=== PATIENT | male | born 1965 | race Caucasian/White ===

== ENCOUNTER 2019-08-05 10:52 | Inpatient (IN) ==
[2019-08-05] MEDS ORDERED: ASPIRIN PO ONE (10:57)
[2019-08-05 11:20] LABS: BASO# 0.03 X1000 (0.0-0.2); BASO% 0.3 % (0.0-0.8); EOS# 0.08 X1000 (0.0-0.7); EOS% 0.7 % (0.0-10.0); HEMATOCRIT 45.1 % (42.0-52.0); HEMOGLOBIN 15.3 g/dL (14.0-18.0); IMM GRAN# 0.02 X1000 (0.0-0.04); IMM GRAN% 0.2 % (0.0-0.5); LYMPH# 2.51 X1000 (1.2-3.4); LYMPH% 21.2 % (20.5-51.1); MCH 31.1 PG (27-31); MCHC 33.9 g/dL (33-37); MCV 91.7 FL (81-99); MONO# 1.47 X1000 (0.11-0.59); MONO% 12.4 % (1.7-9.3); MPV 9.5 FL (7.4-10.4); NEUT# 7.73 X1000 (1.4-6.5); NEUT% 65.2 % (42.2-75.2); PLT 217 X1000 (130-400); RBC 4.92 XMIL (4.7-6.1); RDW 12.8 % (11.5-14.5); WBC 11.84 X1000 (4.8-10.8)
[2019-08-05 11:28] LABS: INR 0.88; PROTIME 12.4 Seconds (11.0-16.0); PTT 26.5 Seconds (22.3-41.8)
[2019-08-05 11:37] LABS: AGAP 15; ALBUMIN 4.4 g/dL (3.5-5.0); ALKALINE PHOSPHATASE 116 U/L (32-122); BUN 7 mg/dL (8-22); CALCIUM 9.5 mg/dL (8.8-10.2); CHLORIDE 99 mmol/L (98-107); CK PROFILE 51 U/L (24-204); COSMO 273; CREATININE 0.9 mg/dL (0.7-1.2); ESTIMATED GFR > 60; GLUCOSE 121 mg/dL (70-104); GOT 12 U/L (10-34); GPT 9 U/L (10-44); POTASSIUM 4.4 mmol/L (3.5-5.1); SODIUM 137 mmol/L (136-145); TCO2 23 mmol/L (25-35); TOTAL PROTEIN 7.8 g/dL (6.3-8.3)
--- NOTE | 2019-08-05 11:38 | EKG Report ---
Test Performed on : 08/05/2019 11:00:41 AM Test Reason : cp Blood Pressure : / mmHG Vent. Rate : 099 BPM Atrial Rate : 099 BPM P-R Int : 158 ms QRS Dur : 090 ms QT Int : 340 ms P-R-T Axes : 047 046 023 degrees QTc Int : 436 ms Normal sinus rhythm. Normal ECG No previous ECGs available Unconfirmed Result
--- NOTE | 2019-08-05 12:12 | Diag Imaging Result Doc PS360 ---
EXAM: CHEST-2 VIEWS INDICATION: cp TECHNIQUE: 2 views COMPARISON: None. FINDINGS: There is likely minimal atelectasis at the lung bases. The lungs are grossly clear, otherwise. There is no discrete pleural fluid collection or pneumothorax. The cardiomediastinal silhouette and central vasculature are grossly unremarkable. IMPRESSION: Likely minimal bibasilar atelectasis. No definite acute pathology by plain radiograph, otherwise. Electronically signed by Tanvri Noe 08/05/2019 12:09 PM
--- NOTE | 2019-08-05 13:02 | Diag Imaging Result Doc PS360 ---
EXAM: CT ANGIOGRM PULMONARY ARTERIES INDICATION: chest pain TECHNIQUE: This exam was performed using automated exposure control, adjustment of mA or kV according to patient size, and/or use of iterative reconstruction technique. Thin section axial images and 3-D MIPS were obtained. COMPARISON: None. FINDINGS: There are multiple filling defects seen in segmental and subsegmental branches of the pulmonary arteries bilaterally mainly leading to the lower lobes but also the right middle lobe and possibly the upper lobes. This is consistent with pulmonary emboli. The clot burden is moderate. The right ventricle is probably somewhat prominent suggesting increased pressures. There is no evidence of aortic dissection or aneurysm. There is no evidence of significant mediastinal or hilar lymphadenopathy. There are calcified right hilar lymph nodes indicating prior granulomatous disease. There are a few focal consolidations at the peripheries of the right and left lower lobes that are suspicious for pulmonary infarcts. The largest is at the periphery of the right lower lobe. There is trace pleural fluid on the right. There is no pneumothorax. Limited views of the upper abdomen are essentially unremarkable. IMPRESSION: Bilateral pulmonary emboli with a moderate clot burden and findings suggestive of pulmonary infarcts involving both the right and left lower lobes as described. Electronically signed by Tanvir Noe 08/05/2019 12:59 PM
--- NOTE | 2019-08-05 13:16 | PROVIDER DOCUMENTATION ---
This chart was entered by Narcisa Dang Scribe, acting as scribe for Conor Perla MD. HPI-Chest Pain - General Chief Complaint: Chest Pain Stated Complaint: CHEST PAIN Time Seen by Provider: 08/05/19 12:02 Source: patient Allergies/Adverse Reactions: Patient Allergies Allergy/AdvReac Type Severity Reaction Status Date / Time No Known Allergies Allergy Verified 08/05/19 11:12 Home Medications: Home Medication List Medication Instructions Recorded Confirmed Last Taken Type Clonazepam [Klonopin] 1 mg PO BID 08/05/19 08/05/19 Unknown History Omeprazole 40 mg PO DAILY 08/05/19 08/05/19 08/05/19 History - History of Present Illness-CP Nature of Presenting Problem: 54yom presents to ED cc right calf pain that radiates up to lower back, chest pain and SOB that is increased with breathing since last night. Pt denies any recent travel or family hx of clotting disorder. Pt is a smoker. Location: reports: central (right side) Chest Pain Radiation: reports: no radiation Quality of Pain: reports: sharp, tightness Severity in ED: moderate, severe Onset/Duration: last night Timing: still present Context/Activities at Onset: reports: sleep Modifying Factors: worse with: breathing, movement, palpation Associated Symptoms: reports: back pain, shortness of breath Similar Symptoms Previously?: No Recently Seen Here or By Another Healthcare Provider: No Review of Systems - Adult - REVIEW OF SYSTEMS - ADULT Constitutional: reports: see HPI, fatique. denies: chills, fever Eyes: reports: no symptoms reported Ears, Nose, Mouth & Throat: reports: no symptoms reported Cardiovascular: reports: see HPI, chest pain. denies: palpitations Respiratory: reports: see HPI, shortness of breath. denies: cough Gastrointestinal: reports: no symptoms reported Genitourinary: reports: no symptoms reported Musculoskeletal: reports: see HPI, back pain (low back), other (pain in right calf) Integumentary: reports: no symptoms reported Neurological: reports: no symptoms reported Psychiatric: reports: no symptoms reported Endocrine: reports: no symptoms reported Hematologic/Lymphatic: reports: no symptoms reported Allergic/Immunologic: reports: no symptoms reported All Other Systems: Reviewed and Negative Past History - Adult - PAST MEDICAL HISTORY-ADULT Review of Records: reports: Nursing Assessment Review, Medications Reviewed, Social history reviewed & non-contributory. Major Childhood Illnesses: reports: denies history Cardiovascular: reports: denies history Respiratory: reports: denies history Gastrointestinal: reports: denies history Obstetrical/Gynecological: reports: denies history Genitourinary: reports: denies history Musculoskeletal: reports: denies history Neurological: reports: denies history Endocrine/Immune: reports: denies history Other Conditions: reports: denies history - IMMUNIZATION STATUS Childhood Immunizations: See Nurse Assessment Flu Vaccine: See Nurse Assessment - FAMILY HISTORY Family History: reviewed, not pertinent - SOCIAL HISTORY Smoking: cigarettes, greater than 1 pack/day Provider spent 3-5 mins advising pt. on dangers of tobacco.: Discussed manners to quit use, and f/u contacts for add'l counseling. Physical Exam-General - PHYSICAL EXAM-ADULT Initial Vital Signs Reviewed: Yes - CONSTITUTIONAL General Appearance: alert, moderate distress. negative: anxious, combative - EYES Eyes: PERRL/EOMI, pink conjunctivae. negative: photophobia - HEAD, EARS, NOSE, MOUTH & THROAT HENMT: normocephalic/atraumatic, moist mucous membranes. negative: angioedema - RESPIRATORY Respiratory: pain on inspiration. negative: chest non-tender (right side), no pleuratic chest pain - CARDIOVASCULAR Cardiovascular: normal peripheral pulses, tachycardia. negative: regular rate, rhythm, bradycardia - GASTROINTESTINAL (ABDOMEN) Abdominal Exam: normal bowel sounds, non tender, soft. negative: rebound, tenderness - MUSCULOSKELETAL Extremity: normal range of motion, pelvis stable, calf tenderness (right) - SKIN Integumentary: normal color. negative: jaundice - PSYCHIATRIC Psych/Mental Status: normal mood/affect, oriented x 3. negative: anxious, disheveled Progress - PLAN OF CARE/RESULTS Progress/Plan/Lab Results: Vital Signs - 8 hr 08/05/19 11:09 Temperature 98.8 F Pulse Rate 96 H Respiratory Rate 19 Blood Pressure 152/110 O2 Sat by Pulse Oximetry 95 Laboratory Results - last 24 hr 08/05/19 08/05/19 08/05/19 11:03 11:03 11:03 WBC 11.84 H RBC 4.92 Hgb 15.3 Hct 45.1 MCV 91.7 MCH 31.1 H MCHC 33.9 RDW Std Deviation 12.8 Plt Count 217 MPV 9.5 Immature Gran % (Auto) 0.2 Neut % (Auto) 65.2 Lymph % (Auto) 21.2 Schleicher % (Auto) 12.4 H Eos % (Auto) 0.7 Baso % (Auto) 0.3 Immature Gran # (Auto) 0.02 Neut # (Auto) 7.73 H Lymph # (Auto) 2.51 Schleicher # (Auto) 1.47 H Eos # (Auto) 0.08 Baso # (Auto) 0.03 PT INR PTT (Actin FS) D-Dimer, Quantitative Sodium 137 Potassium 4.4 Chloride 99 Carbon Dioxide 23 L Anion Gap 15 BUN 7 L Creatinine 0.9 Estimated GFR/1.73 m2 > 60 BUN/Creatinine Ratio 8 Glucose 121 H Calculated Osmolality 273 Calcium 9.5 Total Bilirubin 1.30 H AST 12 ALT 9 L Alkaline Phosphatase 116 Creatine Kinase 51 Troponin T Qmc-P-Edkumdcoigq Pept 180 H Total Protein 7.8 Albumin 4.4 Globulin 3.0 Albumin/Globulin Ratio 1.0 08/05/19 08/05/19 08/05/19 11:03 11:03 11:03 WBC RBC Hgb Hct MCV MCH MCHC RDW Std Deviation Plt Count MPV Immature Gran % (Auto) Neut % (Auto) Lymph % (Auto) Schleicher % (Auto) Eos % (Auto) Baso % (Auto) Immature Gran # (Auto) Neut # (Auto) Lymph # (Auto) Schleicher # (Auto) Eos # (Auto) Baso # (Auto) PT 12.4 INR 0.88 PTT (Actin FS) 26.5 D-Dimer, Quantitative 3.76 H Sodium Potassium Chloride Carbon Dioxide Anion Gap BUN Creatinine Estimated GFR/1.73 m2 BUN/Creatinine Ratio Glucose Calculated Osmolality Calcium Total Bilirubin AST ALT Alkaline Phosphatase Creatine Kinase Troponin T < 0.010 Lyb-M-Dchshmaokhl Pept Total Protein Albumin Globulin Albumin/Globulin Ratio Orders Category Date Time Status Cardiac Monitoring DIRECTED Care 08/05/19 10:57 Active Oxygen Therapy- ED Nursing DIRECTED Care 08/05/19 10:57 Active Saline Loc NOW Care 08/05/19 10:57 Active CHEST-2 VIEWS [RAD] Stat Exams 08/05/19 10:[address] ANGIOGRM PULMONARY ARTERIES [CT] Stat Exams 08/05/19 12:01 Completed CBC WITH ELECTRONIC DIFF [HEME] Stat Lab 08/05/19 11:03 Completed CK PROFILE [SP CHEM] Stat Lab 08/05/19 11:03 Completed COMPREHENSIVE METABOLIC PANEL [CHEM] Stat Lab 08/05/19 11:03 Completed D-DIMER [COAG] Stat Lab 08/05/19 11:03 Completed PRO B-NATRIURETIC PEPTIDE Stat Lab 08/05/19 11:03 Completed PROTIME WITH INR [COAG] Stat Lab 08/05/19 11:03 Completed PTT [COAG] Stat Lab 08/05/19 11:03 Completed TROPONIN T Stat Lab 08/05/19 11:03 Completed Aspirin Med 08/05/19 10:57 Discontinued 325 mg PO NOW ONE CP/SOB/Palp >45 yrs of Age Stat Oth 08/05/19 10:57 Ordered EKG [EKG] Stat Ther 08/05/19 10:57 Draft Result Diagrams: 08/05/19 11:03 08/05/19 11:03 - EKG 1 Time of EKG reading by physician:: 11:00 EKG Read and Signed by:: Conor Perla EKG Interpretation (*Must complete 3 of following elements*): Normal Rate: 99 Rhythm: nsr QRS: normal GA Interval: normal - XRAY 1 XRAY: Bilateral XRAY Study: Chest Impression: See EMR Report (IMPRESSION: Likely minimal bibasilar atelectasis. No definite acute pathology by plain radiograph, otherwise. Electronically signed by Tanvir Noe 08/05/2019 12:09 PM) - CT/MRI 1 CT Study: Angiogram Impression: See EMR Report (IMPRESSION: Bilateral pulmonary emboli with a moderate clot burden and findings suggestive of pulmonary infarcts involving both the right and left lower lobes as described. Electronically signed by Tanvir Noe 08/05/2019 12:59 PM) - CONSULTS/PCP/HOSPITALIST Notification #1 *Consult/PCP/Hospitalist*: Dr. Payton [phone];[email or web address] Time Discussed: 13:10 Consult Disposition: Admit (accepted pt) Departure - Departure Date of Disposition Decision: 08/05/19 Time of Disposition Decision: 13:10 DIAGNOSIS: Pulmonary embolism Qualifiers: Pulmonary embolism type: unspecified Chronicity: unspecified Acute cor pulmonale presence: unspecified Qualified Code(s): I26.99 - Other pulmonary embolism without acute cor pulmonale Disposition: ADMITTED INPATIENT 09 Certified Medical Emergency: Emergent Condition: Stable Additional Instructions: ED Follow Up Instructions: You have been treated by a care provider in the Emergency Department. These instructions are being provided to you so you can have an understanding of how to care for yourself upon discharge. Upon discharge from the Emergency Department, you are responsible for making arrangements for follow-up care by a physician of your choice. Take all prescribed medications as directed. Return to the Emergency Department immediately for any new or worsening symptoms. You may call the Physician Referral phone number at [phone] to obtain a list of Physicians who are taking new patients. Referrals and Follow-Ups: Marah House CRNP [Primary Care Provider] - Discharge Education: Steps to Quit Smoking, [id number] - Critical Care Note This patient required my direct & personal management of CC.: No Attestation - Physician/ SHAHNAZ Attestation Patient care was provided by Advanced Practice Provider:: No The physician spent face to face time with patient:: Yes Advanced Practice Provider documentation review:: Supervising physician onsite and consulted in the evaluation and care of this patient. The physician did have a face to face encounter with the patient. This chart was documented by the indicated scribe, (Narcisa Dang, [place]) and accurately reflects the services I performed and decisions made by me, Conor Perla MD, as attested by the provider's signature.
[2019-08-05] MEDS ORDERED: LOVENOX SUBQ ONE (13:30)
--- NOTE | 2019-08-05 15:27 | Vascular Study Report ---
EXAM: Venous U/S Bilateral Legs INDICATION: pte TECHNIQUE: COMPARISON: None. FINDINGS: There are filling defects and there is poor compressibility and Doppler flow involving the right popliteal vein, the right peroneal vein, and the right posterior tibial vein indicating DVT. The remainder of the right deep venous system and the left deep venous system exhibit normal Doppler flow, compressibility, and augmentation. IMPRESSION: Deep venous thrombosis involving the popliteal vein, posterior tibial vein, and peroneal vein on the right. Electronically signed by Tanvir Noe 08/05/2019 3:25 PM
[2019-08-05] MEDS: MORPHINE IV PRN ×2 (16:02→21:20)
[2019-08-05] MEDS: ZOFRAN IV PRN (16:03)
[2019-08-05] MEDS: LOVENOX SUBQ SCH (16:03)
[2019-08-05] MEDS: NICODERM PATCH TD SCH (16:10)
--- NOTE | 2019-08-05 17:54 | HISTORY AND PHYSICAL ---
PRIMARY CARE PHYSICIAN: SAUL Pino. CHIEF COMPLAINT: Shortness of breath and pain. HISTORY OF PRESENT ILLNESS: Mr. Valle is a 54-year-old, male. He states that in the middle of the night last night, he started having chest pain and leg pain. Friend who is at the bedside, stated that he has not been feeling good for the past week. He was started on some Singulair. He thought it was his Singulair that was making him feel bad and he stopped taking his Singulair. He has been having shortness of breath since Wednesday of the past week. He has been having sweating, chills, and nausea. Last night when he started having the chest pain, severe shortness of breath, and leg pain, he decided to come to the ER this morning. Upon arrival to the ER, D-dimer was performed and was noted to be 3.76. Pulmonary arteriogram was performed. He was noted to have bilateral pulmonary emboli with infarcts involving both the right and left lower lobes. Venous ultrasound was performed. He was noted to have deep venous thrombosis involving the popliteal vein, posterior tibial vein, and peroneal vein on the right. The patient is having severe pain at this time to his chest. He is complaining of severe shortness of breath at this time. He is having trouble catching his breath while he is talking to me. He is right now 95% on room air. He does not have any other symptoms at this time. PAST MEDICAL HISTORY: Anxiety and GERD. 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 FAMILY HISTORY: Mom from lung cancer. SOCIAL HISTORY: Patient lives alone. He lives in [place], [place]. He smokes one pack of cigarettes per day. He drinks one drink of whiskey every day. He denies any illicit drug abuse. HOME MEDICATIONS: Klonopin 1 mg p.o. b.i.d., omeprazole 40 mg p.o. daily. ALLERGIES: No known drug allergies. LABORATORY AND DIAGNOSTICS: White blood cell count 11.84, red blood cell count 4.92, hemoglobin 15.3, hematocrit 45.1, platelet count 217,000. PT is 12.4, INR 0.88, PTT 26.5. D-dimer 3.76. Sodium 137, potassium 4.4, chloride 99, carbon dioxide 23, anion gap 15, BUN 7, creatinine 0.9, estimated GFR is greater than 60, glucose 121, calcium 9.5. Total bilirubin 1.30, AST is 12, ALT is 9, alkaline phosphatase 116. Creatine kinase 51, troponin less than 0.01. ProBNP is 180. Ultrasound venous Doppler shows DVT involving the popliteal vein, posterior tibial vein, and peroneal vein on the right. Pulmonary arteriogram shows bilateral pulmonary emboli with a moderate clot burden and findings suggestive of pulmonary infarcts involving both the right and left lower lobes. Chest x-ray shows bibasilar atelectasis. EKG shows normal sinus rhythm with a rate of 99 beats per minute. REVIEW OF SYSTEMS: The patient is negative for fever. He is positive for chills. He is negative for congestion, rhinorrhea, headaches, vision changes. Denies hoarseness or dizziness. Negative for neck pain, stiffness. Negative for excessive thirst, urination, intolerance to heat or cold. Negative for palpitations. Positive for chest pain. Negative for leg edema. Positive for cough. Negative for sputum. Positive for dyspnea, shortness of breath. Negative for hemoptysis. Negative for anorexia, nausea, vomiting. Positive for pain. Negative for melena, hematemesis, reflux, dysphagia, diarrhea, constipation, hemorrhoids. Negative for dysuria, hesitancy, frequency, urgency, hematuria, incontinence. Negative for joint pain, weakness, muscle aches. Negative for syncope, dizziness, tremor, vertigo, numbness, memory loss. PHYSICAL EXAMINATION: VITAL SIGNS: Temperature 98.1 degrees, pulse rate 88, respiratory rate 16, blood pressure is 127/63, O2 saturation 95% on room air. Weight 211 pounds, height 6 feet 4 inches. GENERAL: This is a 54-year-old, male. He is well nourished, well developed. He is in somewhat acute distress at present time. HEENT: Atraumatic, normocephalic. Pupils equal, round, reactive to light. Sclerae are anicteric. Mucous membranes are moist. NECK: Supple. No lymphadenopathy. Trachea is midline. No JVD. No thyromegaly. No bruits. CARDIOVASCULAR: Regular rate and rhythm. No gallops. No rubs. RESPIRATORY: Rhonchi noted to the upper lobes. A little diminished noted to the lower lobes. All lobes are very tight, especially in the upper lobes. Respirations seem labored. There is equal chest excursion. There is some accessory muscle usage. GASTROINTESTINAL: Abdomen is soft, nontender, nondistended. Bowel sounds are present x4. NEUROLOGIC: Cranial nerves 2-12 are intact. The patient is awake, alert, and oriented. MUSCULOSKELETAL: Full distal strength noted. No abnormalities. No deformities. EXTREMITIES: No clubbing. No cyanosis. No edema. DP and PT pulses are present and palpable. SKIN: Warm, dry, intact. No rashes. No bruises. No diaphoresis. ASSESSMENT AND PLAN: 1. Pulmonary embolism and deep venous thrombosis. We will admit this patient to the medical floor. We will place him on monitoring tech. We have started him on Lovenox 1 mg/kg subcutaneous b.i.d. We are going to keep him on bedrest at this time. We are going to provide him with O2 per protocol. We are going to provide him with morphine for pain. We are going to perform some labs in the morning and some labs today, restart his home medications, start him on a regular diet, do a chest x-ray in the morning. 2. Anxiety. I have restarted his Klonopin b.i.d. 3. Tobacco dependency. Start him on a nicotine patch and provide him with smoking cessation information. 4. Gastrointestinal prophylaxis. Start him on Prilosec daily. 5. Deep venous thrombosis prophylaxis. He is on Lovenox for his pulmonary emboli and deep vein thromboses. This should provide him with deep vein thrombosis prophylaxis. PLAN: Admit him to the medical floor. We have started him on Lovenox 1 mg/kg subcutaneous b.i.d. We have provided him with GI and DVT prophylaxis. We are providing him with morphine for pain. We will restart him on his home medications. We are checking some lab levels on him. We are going to repeat labs in the morning and a chest x-ray. All other further treatment pending hospital course and lab data. Dictated by SAUL Stiles for Chica Payton MD cc: MD Marah Verma
[2019-08-05] MEDS: KLONOPIN PO SCH (21:14)
[2019-08-06] MEDS: MORPHINE IV PRN ×8 (00:50→23:54)
[2019-08-06] MEDS: PRILOSEC PO SCH ×2 (05:29→06:33)
[2019-08-06] MEDS: LOVENOX SUBQ SCH ×2 (05:29→15:39)
[2019-08-06 06:36] LABS: AGAP 13; BUN 8 mg/dL (8-22); CALCIUM 9.5 mg/dL (8.8-10.2); CHLORIDE 99 mmol/L (98-107); COSMO 272; CREATININE 0.9 mg/dL (0.7-1.2); ESTIMATED GFR > 60; GLUCOSE 101 mg/dL (70-104); POTASSIUM 4.2 mmol/L (3.5-5.1); SODIUM 137 mmol/L (136-145); TCO2 26 mmol/L (25-35)
[2019-08-06 06:57] LABS: BASO# 0.04 X1000 (0.0-0.2); BASO% 0.4 % (0.0-0.8); EOS# 0.05 X1000 (0.0-0.7); EOS% 0.5 % (0.0-10.0); HEMOGLOBIN 14.2 g/dL (14.0-18.0); IMM GRAN# 0.02 X1000 (0.0-0.04); IMM GRAN% 0.2 % (0.0-0.5); LYMPH# 1.89 X1000 (1.2-3.4); LYMPH% 19.1 % (20.5-51.1); MCH 30.5 PG (27-31); MCV 92.5 FL (81-99); MONO# 1.17 X1000 (0.11-0.59); MONO% 11.9 % (1.7-9.3); MPV 10.1 FL (7.4-10.4); NEUT% 67.9 % (42.2-75.2); PLT 223 X1000 (130-400); RBC 4.65 XMIL (4.7-6.1); RDW 12.8 % (11.5-14.5); WBC 9.87 X1000 (4.8-10.8)
--- NOTE | 2019-08-06 07:41 | Diag Imaging Result Doc PS360 ---
EXAM: CHEST-PORTABLE INDICATION: dyspnea TECHNIQUE: One view COMPARISON: 08/05/2019 FINDINGS: A mild opacity at the right costophrenic angle that appeared to represent atelectasis on the previous study is stable. Based on CT, this probably represents a small pulmonary infarct. No new consolidations are identified. Cardiac silhouette is stable. IMPRESSION: Stable chest. Electronically signed by Tanvir Noe 08/06/2019 7:38 AM
[2019-08-06] MEDS: ZOFRAN IV PRN ×3 (09:39→21:44)
[2019-08-06] MEDS: NICODERM PATCH TD SCH (09:39)
[2019-08-06] MEDS: KLONOPIN PO SCH ×3 (09:56→23:54)
[2019-08-06] MEDS: NS 1,000 ML IV SCH ×2 (10:04→19:43)
--- NOTE | 2019-08-06 13:57 | PROGRESS NOTE ---
DATE: 08/06/2019 SUBJECTIVE: Patient denies having any acute complaints this morning except for having some pleuritic chest discomfort at times, although that has improved as compared to yesterday. OBJECTIVE: Vital Signs: Temperature 99.7 degrees, pulse 92 per minute, respiratory rate 18 per minute, blood pressure 123/70, pulse oximetry 98% on 2 L of oxygen via nasal cannula. General: Patient is alert and oriented x3. Does not appear to be in any acute distress. Cardiovascular System: First and second heart sounds are audible without any murmurs or gallops. Respiratory System: Bilateral lung air entry is moderately decreased but there are no rales or rhonchi present on auscultation. Gastrointestinal System: Abdomen is benign. Diagnostic Data: CBC is nondiagnostic and basic metabolic panel is also within normal limits. LDH was slightly elevated at 248. ProBNP was done yesterday. That was slightly elevated at 180. Cardiac enzymes were negative. IMPRESSION: Acute bilateral pulmonary embolism with right lower extremity deep vein thrombosis. PLAN: We will continue with the enoxaparin subcutaneously 1 mg/kg every 12 hours. We will also continue him on omeprazole 40 mg daily, along with IV fluids. He does have history of anxiety disorder for which he has been taking clonazepam 1 mg twice daily, which will be continued as well. He can probably be able to be discharged home in the next 1 to 2 days. I recommended him to follow up with hematology/oncology once ready to be discharged. cc: Chica Payton MD
--- NOTE | 2019-08-06 18:31 | Diag Imaging Result Doc PS360 ---
EXAM: CHEST-PORTABLE INDICATION: Chest Pain TECHNIQUE: One view COMPARISON: 08/06/2019 FINDINGS: The vague opacity at the right costophrenic angle seen on previous studies that probably represents a pulmonary infarct appears to be improving. No new consolidation is identified. Cardiac silhouette is stable. IMPRESSION: Interval slight improvement. Electronically signed by Tanvir oNe 08/06/2019 6:29 PM
[2019-08-06 20:16] LABS: URINE SOURCE CLEAN CATCH
[2019-08-06 20:21] LABS: BILIRUBIN URINE 1+ (NEGATIVE); BLOOD URINE 1+ (NEGATIVE); CLARITY CLEAR (CLEAR); COLOR YELLOW; GLUCOSE URINE NEGATIVE (NEGATIVE); KETONE URINE 3+(Large) mg/dL (NEGATIVE); LEUKOCYTES URINE TRACE (NEGATIVE); NITRITE URINE NEGATIVE (NEGATIVE); PH URINE 6.5; PROTEIN URINE TRACE mg/dL (NEGATIVE); SP GRAVITY URINE 1.015; UROBILINOGEN URINE 12 mg/dL
[2019-08-06 20:32] LABS: URINE BACTERIA 1+ /HFP; URINE EPITHELIAL CELLS <10 /HPF (<10)
[2019-08-06 20:33] LABS: URINE CAST NONE SEEN /LPF; URINE CRYSTAL NONE SEEN /HPF; URINE RBC <10 /HPF (<10); URINE WBC <10 /HPF (<10); URINE YEAST NONE SEEN /HPF
[2019-08-07] MEDS: MORPHINE IV PRN ×5 (01:47→10:01)
[2019-08-07] MEDS: ZOFRAN IV PRN ×2 (01:48→05:45)
[2019-08-07] MEDS: LOVENOX SUBQ SCH ×2 (03:46→15:21)
[2019-08-07] MEDS: NS 1,000 ML IV SCH ×2 (04:16→12:48)
[2019-08-07 06:35] LABS: AGAP 9; BUN 8 mg/dL (8-22); CHLORIDE 102 mmol/L (98-107); COSMO 268; CREATININE 0.8 mg/dL (0.7-1.2); ESTIMATED GFR > 60; GLUCOSE 95 mg/dL (70-104); POTASSIUM 4.4 mmol/L (3.5-5.1); SODIUM 135 mmol/L (136-145); TCO2 24 mmol/L (25-35)
[2019-08-07 06:47] LABS: BASO# 0.04 X1000 (0.0-0.2); BASO% 0.5 % (0.0-0.8); EOS# 0.07 X1000 (0.0-0.7); EOS% 0.8 % (0.0-10.0); HEMATOCRIT 39.7 % (42.0-52.0); HEMOGLOBIN 13.1 g/dL (14.0-18.0); IMM GRAN# 0.02 X1000 (0.0-0.04); IMM GRAN% 0.2 % (0.0-0.5); LYMPH# 1.57 X1000 (1.2-3.4); LYMPH% 18.2 % (20.5-51.1); MCH 30.5 PG (27-31); MCV 92.3 FL (81-99); MONO# 0.86 X1000 (0.11-0.59); MPV 9.8 FL (7.4-10.4); NEUT# 6.06 X1000 (1.4-6.5); NEUT% 70.3 % (42.2-75.2); PLT 270 X1000 (130-400); RDW 12.2 % (11.5-14.5); WBC 8.62 X1000 (4.8-10.8)
[2019-08-07] MEDS: PRILOSEC PO SCH ×2 (08:19→21:30)
[2019-08-07] MEDS: KLONOPIN PO SCH ×2 (08:19→21:31)
[2019-08-07] MEDS: NICODERM PATCH TD SCH (08:20)
--- NOTE | 2019-08-07 10:04 | Diag Imaging Result Doc PS360 ---
EXAM: US RENAL 2 (RETROPER) COMPLETE HISTORY: Hematuria TECHNIQUE: Real-time transabdominal evaluation of the kidneys and bladder. Standard protocol. COMPARISON: None. FINDINGS: Right kidney: 11.0 centimeters in length. Renal echotexture is normal. There is no hydronephrosis, nephrolithiasis, or focal renal mass. Left kidney: 11.5 centimeters in length. Renal echotexture is normal. There is no hydronephrosis, nephrolithiasis, or focal renal mass. Bladder: No focal abnormality is appreciated. IMPRESSION: Normal renal ultrasound. Electronically signed by Felisa Rey 08/07/2019 10:02 AM
[2019-08-07] MEDS: DILAUDID IV PRN ×4 (12:16→21:29)
--- NOTE | 2019-08-07 14:01 | Diag Imaging Result Doc PS360 ---
EXAM: CHEST-1 VIEW HISTORY: pulmonary embolism TECHNIQUE: Single view COMPARISON: 08/06/2019 FINDINGS: The lungs are well expanded. The heart is not enlarged. The vessels are not distended. There are minimal increased markings in the right lung base. No effusion identified. IMPRESSION: Mild improvement Electronically signed by Petey Blakely 08/07/2019 1:58 PM
[2019-08-07] MEDS ORDERED: TORADOL IV ONE (15:19)
[2019-08-07] MEDS ORDERED: SODIUM CHLORIDE 0.9% INJ SCH (15:30)
[2019-08-07] MEDS ORDERED: PROTONIX IV SCH (15:30)
[2019-08-07] MEDS ORDERED: TYLENOL PO PRN (15:35)
--- NOTE | 2019-08-07 15:53 | PROGRESS NOTE ---
DATE: 08/07/2019 SUBJECTIVE: Patient does not feel good. He does not feel like he has gotten any better since admission. He hurts all over. He is just not happy but feels like he should have progressed more than he has at this point. OBJECTIVE: Blood pressure 136/86, heart rate 72, respiratory 14, temperature 98.1 degrees, 96% on 2 L.Cardiovascular: Regular rate and rhythm. Pulmonary: Bilateral breath sounds, clear to auscultation. GI: Soft, nontender, nondistended. Bowel sounds are positive. LABORATORY DATA: White count 8, hemoglobin and hematocrit 13, 39, platelets 270,000. Basic was normal. PROBLEM LIST: 1. Bilateral pulmonary embolism with a right lower extremity deep vein thrombosis 2. Pulmonary embolism. Will continue Lovenox. I think we are probably getting close to transitioning him to p.o. Eliquis. I may do that tomorrow. Clinically I feel like he should be better by now but I am not sure if it is just poor motivation or just feels all over. He is not really ill as far as his vital signs, blood pressure, heart rate is stable. He does have minimal O2 requirement but it has not clinically worsened. He has pulmonary infarcts but his x-rays look improved so I am not quite sure why he has not rallied but we do need to work on getting him out of bed. He has been here for 3 days at least so work on that maybe in physical therapy. I am moving him so he can get a Pulmonary consultation because he did not specifically requested for that but he did not feel like he was getting any better. We can also have Heme-Onc evaluate him there because we really unclear diagnosis why he has an acute PE, DVT. Reportedly colonoscopy in the last 6 months was normal, stomach did not show any issues except for possibly some gastritis. We will finish his hypercoagulable workup because he does not have all the hypercoagulable labs ordered including lupus and antiphospholipid which is unlikely to be positive but as far as I can tell his homocystine level has not been drawn either but we will continue to follow. cc: Travis Workman MD
--- NOTE | 2019-08-07 15:53 | EKG Report ---
Test Performed on : 08/07/2019 3:28:30 PM Test Reason : cp Blood Pressure : / mmHG Vent. Rate : 084 BPM Atrial Rate : 084 BPM P-R Int : 148 ms QRS Dur : 090 ms QT Int : 366 ms P-R-T Axes : 065 055 046 degrees QTc Int : 432 ms Normal sinus rhythm. Cannot rule out Anterior infarct , age undetermined Abnormal ECG When compared with ECG of 05-AUG-2019 11:00, (Unconfirmed) No significant change was found Confirmed by Conor Perla MD ([id number]) on 08/07/2019 6:21:58 PM
[2019-08-07] MEDS: CLINIMIX E 4.25%-5% SOLUTION 1,000 ML IV SCH (16:51)
--- NOTE | 2019-08-07 19:13 | ECHO REPORT ---
ORDER DATE: 08/07/2019 INTERPRETING PHYSICIAN: Dr. Alejo Finley. REQUESTING PHYSICIAN: Travis Workman MD. CLINICAL INDICATIONS: A 54-year-old male with pulmonary embolism. Evaluate LV function. M-MODE MEASUREMENTS: Left ventricle end diastole: 5.5 cm. Left ventricle end systole: 2.9 cm. Posterior wall: 1.1 cm. Interventricular septum: 1.1 cm. Left atrium: 4.5 cm. Aortic root: 3.9 cm. SUMMARY OF 2-DIMENSIONAL IMAGIN. The study is technically difficult. 2. The left ventricle shows normal in size and function. Ejection fraction visually estimated at 65%. No wall motion abnormality is noted. 3. The right ventricle shows some thickening of the wall with normal function. 4. There is no dilatation or obvious dysfunction. 5. The atria appear to be normal. 6. The mitral valve is normal with no significant regurgitation. 7. Pulse wave Doppler of mitral inflow shows normal E/A ratio. 8. Tissue Doppler of septal and lateral mitral annulus averages 9 cm per second. 9. There is no definite evidence of left ventricular diastolic dysfunction. 10.The aortic valve is normal. Color flow mapping unremarkable. 11.The pulmonic valve is normal. Color flow mapping unremarkable. 12.The tricuspid valve is well visualized. However, there is no evidence of any significant regurgitation. Pulmonary systolic pressure cannot be calculated here. 13.There is no pericardial effusion, mass or thrombus. SUMMARY: This echocardiographic study is probably within normal range. Clinical correlation is recommended. cc: MD Travis Renee MD
--- NOTE | 2019-08-07 20:45 | PULMONOLOGY CONSULTATION ---
DATE: 08/07/2019 REQUESTING CLINICIAN: Dr. Lucas Workman. REASON FOR CONSULTATION: Persistent hypoxemia. HISTORY OF PRESENT ILLNESS: Mr. Valle is a 54-year-old male with a greater than 30 pack-year history for tobacco, ongoing tobacco use, who leads a relatively active lifestyle. The patient reports approximately 5 days prior to presenting to [facility] on the 12th of this month, he developed some pain in his right lower extremity. He has been laying new floors in a house that he purchased and attributed it to muscle fatigue. On the day of admission, he developed acute right-sided chest pain and he presented to the emergency room. D-dimer was elevated and he underwent a CT pulmonary angiogram which revealed bilateral pulmonary emboli with bibasilar pulmonary infarctions. Venous Dopplers of the lower extremities were performed and he has deep vein thrombosis involving the popliteal vein, posterior tibial vein, and peroneal vein on the right. He reports that he is having some migratory chest pain. PAST MEDICAL HISTORY: 1. History of plantar fasciitis involving the left leg. 2. History of squamous cell carcinoma, requiring significant facial surgery. 3. History of basal cell carcinoma. 4. Anxiety disorder, on Klonopin for the last 2 to 3 years. 5. Gastroesophageal reflux disease. SOCIAL HISTORY: Ongoing tobacco use as per above. 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 He drinks 1 drink of whiskey each day. FAMILY HISTORY: Positive for lung cancer in his mother. REVIEW OF SYSTEMS: As noted in the HPI. PHYSICAL EXAMINATION: General: Reveals a well developed, well nourished male, resting comfortably and in no distress. Vital Signs: BP 150/88, heart rate 86, respiratory rate 16, oxygen saturation 99% on 2 L per nasal cannula. HEENT: Pupils are equal and reactive. Oropharynx appears clear. Neck: Supple. Chest: Faint crackles bilaterally. Cardiac: S1, S2. Abdomen: Soft. Extremities: Without significant abnormality. The leg circumferences were not measured, but visually examined. LABORATORIES: CT scan as per HPI. Echocardiogram performed this afternoon reveals normal LV function. There is some thickening of the wall of the right ventricle, but no dilation described. Pulmonary artery pressure could not be calculated due to lack of regurgitation. It was read as essentially within normal range. IMPRESSION: A 54-year-old with extensive tobacco history, pulmonary embolus, pulmonary infarction, deep vein thrombosis, pleurisy, acute hypoxemic respiratory failure. The patient is completing 48 hours of anticoagulation. He is not hemodynamically unstable. Echocardiogram appears to be near normal. RECOMMENDATIONS: 1. Continue anticoagulation. He can be transitioned to an oral anticoagulant from my perspective. 2. Initiate incentive spirometry. 3. Wean oxygen as tolerated. 4. I agree with plans to have patient evaluated by Oncology to evaluate possible etiology for an unprovoked clot. 5. Encourage smoking cessation. 6. Recommend pulmonary function studies in 6 to 8 weeks after he has been adequately treated for his pulmonary embolus. cc: Sincere Arias MD
[2019-08-08] MEDS: DILAUDID IV PRN ×5 (00:30→20:58)
[2019-08-08] MEDS: ZOFRAN IV PRN ×4 (00:30→20:59)
[2019-08-08] MEDS: TORADOL IV PRN ×2 (03:33→12:32)
[2019-08-08] MEDS: CLINIMIX E 4.25%-5% SOLUTION 1,000 ML IV SCH ×2 (03:33→12:32)
[2019-08-08] MEDS: LOVENOX SUBQ SCH ×2 (03:33→16:07)
[2019-08-08 05:29] LABS: BASO# 0.02 X1000 (0.0-0.2); BASO% 0.3 % (0.0-0.8); EOS# 0.25 X1000 (0.0-0.7); EOS% 3.9 % (0.0-10.0); HEMATOCRIT 38.4 % (42.0-52.0); HEMOGLOBIN 13.1 g/dL (14.0-18.0); LYMPH# 1.47 X1000 (1.2-3.4); LYMPH% 22.9 % (20.5-51.1); MCH 31.4 PG (27-31); MCHC 34.1 g/dL (33-37); MCV 92.1 FL (81-99); MONO# 0.64 X1000 (0.11-0.59); MPV 10.1 FL (7.4-10.4); NEUT# 4.03 X1000 (1.4-6.5); NEUT% 62.9 % (42.2-75.2); PLT 259 X1000 (130-400); RBC 4.17 XMIL (4.7-6.1); WBC 6.41 X1000 (4.8-10.8)
[2019-08-08 06:06] LABS: AGAP 11; BUN 12 mg/dL (8-22); CALCIUM 8.4 mg/dL (8.8-10.2); CHLORIDE 102 mmol/L (98-107); COSMO 275; CREATININE 0.7 mg/dL (0.7-1.2); ESTIMATED GFR > 60; GLUCOSE 127 mg/dL (70-104); POTASSIUM 3.7 mmol/L (3.5-5.1); SODIUM 137 mmol/L (136-145); TCO2 24 mmol/L (25-35)
[2019-08-08] MEDS: PRILOSEC PO SCH ×2 (08:28→20:59)
[2019-08-08] MEDS: NICODERM PATCH TD SCH (08:29)
[2019-08-08] MEDS: KLONOPIN PO SCH ×2 (08:29→20:59)
[2019-08-08] MEDS ORDERED: KLONOPIN PO SCH (09:00)
--- NOTE | 2019-08-08 16:05 | ECHO REPORT ---
ORDER DATE: 08/07/2019 ADDENDUM: At the end of the procedure, the patient was injected with agitated saline because of a suspicion of possible patent foramen ovale. Agitated saline was injected twice with optimal opacification of the right-sided chambers. The study showed trivial crossing of bubbles from [id number]. It was a very slightly positive study for patent foramen ovale. SUMMARY: This study showed that there is suspicion of a patent foramen ovale with slight crossing of bubbles from [id number]. Please correlate clinically and make this an addendum to the dictation that was done on 08/07/2019. I missed this portion of the study on the original report. cc: MD Travis Renee MD MTDD
--- NOTE | 2019-08-08 16:15 | PROGRESS NOTE ---
DATE: 08/08/2019 SUBJECTIVE: The patient is still not feeling very good. He is just weak. He has pain when he walks. He has pain when he is up and about. Really not entirely sure why he is so uncomfortable, but he does have several things. His D-dimer was elevated. So far his protein C, S, and antithrombin activity are negative, as was his homocystine level. We are still waiting on his other testing. OBJECTIVE: Vital signs: Blood pressure is 116/82, heart rate of 80, respiratory rate 18, temperature 98.4 degrees. Cardiovascular: Regular rate and rhythm. Pulmonary: Bilateral breath sounds. Clear to auscultation. GI: Soft, nontender, nondistended. Bowel sounds are positive. LABORATORY DATA: White count is 6, hemoglobin and hematocrit 13 and 38, platelets 259,000. Basic was normal. PROBLEM LIST: 1. Pulmonary embolism and deep vein thrombosis. He is on anticoagulation with Lovenox. At some point I think we are going to transition him, hopefully soon, to Xarelto or Eliquis and follow. He is getting a DVT, PE workup, hypercoagulability, thrombophilia workup. So far everything is negative. PSA was analyzed. I think that is appropriate for his age range. He is a little on the young side but really do not have any other clear issues. 2. Disposition. We will continue to follow. I think he really needs to be getting up and about. I am going to order PT on him. I think his ability to tolerate the comfort is he has a low threshold I think for pain, although I do not think he has a lot of experience with this. He is not rallying like I would hope he would do. He is eating a little bit better, so hopefully he will come around. We need to start getting him up and about. We will get a PT consult and follow. Disposition is pending his clinical status. cc: Travis Workman MD
--- NOTE | 2019-08-08 16:21 | HEMO/ONC CONSULTATION ---
DATE: 08/08/2019 CONSULTATION REQUESTED BY: Hospitalist service. REASON FOR CONSULTATION: For bilateral PTEs and right lower extremity DVT, unprovoked. HISTORY OF PRESENT ILLNESS: Mr. Valle is a 54-year-old male who initially presented to the emergency department complaining of increasing chest pain and leg pain. The patient reported in general not feeling well prior to his presentation. Workup revealed for him to have an elevated D- dimer. He subsequently underwent pulmonary arteriogram which showed him to have bilateral pulmonary emboli with infarcts involving both the right and left lower lobes. Lower extremity Doppler revealed him to have a DVT on the right involving the popliteal vein, posterior tibial vein and peroneal vein. He is now being closely monitored. He is on Lovenox 1 mg/kg q.12 hours. Hypercoagulable workup has been initiated but thus far has been negative. The patient denies any family history of blood clot. He is very active. He works full-time. 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 He denies any recent long-distance travel as well. He is up-to-date on colonoscopy and endoscopy within the last 6 months both of which were negative for any sort of malignancies or any other issues. The patient is not sure if he has had his prostate checked ever. He is currently tolerating the Lovenox well without any issues. PAST MEDICAL HISTORY: 1. Anxiety. 2. GERD. PAST SURGICAL HISTORY: 1. Plantar fasciitis repair. 2. Basal cell cancer removal on his back. 3. Squamous cell cancer removal from his lip. SOCIAL HISTORY: Patient currently lives alone in [place], [place]. He smokes about 1 pack of cigarettes per day and also drinks 1 drink of whiskey every day. Denies any illicit drug use. FAMILY HISTORY: He denies any clotting history in his family. His mother did from lung cancer. REVIEW OF SYSTEMS: Twelve point review of systems has been completed negative except for expressed in HPI. PHYSICAL EXAMINATION: Vital Signs: Temperature 97.7 degrees, heart rate 71, respirations 20, blood pressure 129/87, O2 saturation 97% on 2 L nasal cannula. General: This is a well- nourished, well-developed male who is sitting in his hospital bed. There is no one at bedside. He has no acute distress. HEENT: Head normocephalic, atraumatic. Pupils equal, round, reactive. Oral mucosa appears to be normal. Gross auditory acuity is intact. Cardiovascular: S1, S2 heard. No murmurs, gallops, rubs appreciated. Respiratory: Chest clear. Normal respiratory effort. Gastrointestinal: Abdomen soft. Positive bowel sounds. Musculoskeletal: No bony abnormalities. Extremities: Patient has some trace right lower extremity edema. Left lower extremity is unremarkable. No erythema or warmth noted bilateral lower extremities. Neurologic: Patient is alert and oriented. No focal deficits noted at this time. LABS AND STUDIES: CT angio and lower extremity Doppler is as per the [facility]. White blood cells today are 6.41, hemoglobin 13.1, platelets 259,000. ASSESSMENT/PLAN: 1. Bilateral pulmonary thromboembolisms with right extensive lower extremity deep vein thrombosis, unprovoked. Hypercoagulable workup has been initiated and thus far has come back as negative. Will make sure to review all of the hypercoagulable workup when it becomes available. The patient is currently on Lovenox 1 mg/kg which is the therapeutic dosing. Plan to transition the patient to oral agent. We recommend Xarelto due to its eventual once a day dosing. Eliquis could work as well. The patient will likely need long-term anticoagulation so that was discussed with him at this time. Will have to have him follow up with us once he is out to review all the hypercoagulable workup and discuss the length of his anticoagulation. At the very minimum would be a 6 month course but again, it will likely be for longer. The patient has recently had a colonoscopy. We recommend at this time doing PSA just so he is up- to-date on his age-appropriate cancer screening. 2. Pleurisy and acute hypoxemic respiratory failure. Dr. Arias has been consulted and has evaluated the patient. Management per Dr. Arias. 3. Anxiety. He will continue to use Klonopin twice per day. 4. Pain. Seems to be currently well managed. He is receiving Dilaudid and Toradol. Continue both per the primary team's recommendations. We want to thank you for consulting us on Mr. Valle. We will continue to follow along and adjust our treatment plan per the patient's hospital course. Dictated by JET Mai for Gila Hernandez MD cc: Gila Hernandez MD I have seen and examined the patient and the above note reflects my H&P, assessment and plan. Gila Hernandez MD [facility]
--- NOTE | 2019-08-08 20:56 | PULMONOLOGY PROGRESS NOTE ---
DATE: 08/08/2019 SUBJECTIVE: The patient is awake, alert and conversant. He is without specific complaints today except for mild pleurisy. OBJECTIVE: The patient has been afebrile over the last 24 hours. Blood pressure 130/83, heart rate 80, respiratory rate 20, oxygen saturation 97%. HEENT: Pupils are equal and reactive. Oropharynx appears clear. Neck is supple. Chest reveals decreased breath sounds, right base. Cardiac exam: S1, S2. Abdomen is soft. Extremities reveal slight asymmetry, right lower extremity, compared to left. IMPRESSION: A 54-year-old with: 1. Unprovoked pulmonary embolus. 2. Pulmonary infarction. 3. Pleurisy associated with pulmonary infarction. 4. Deep vein thrombosis. 5. Acute hypoxemic respiratory failure. PLAN: 1. Continue anticoagulation. 2. Continue incentive spirometry. 3. Wean oxygen as tolerated. 4. Agree with oncology evaluation for hypercoagulable workup. 5. Encourage smoking cessation. 6. Followup chest x-ray tomorrow. cc: Sincere Arias MD
--- NOTE | 2019-08-08 21:05 | Diag Imaging Result Doc PS360 ---
EXAM: CHEST-PORTABLE HISTORY: abnormal chest exam TECHNIQUE: Chest single view COMPARISON: 08/07/2019 FINDINGS: The lungs are well expanded. The heart is not enlarged. The vessels are not distended. Right lung markings are slightly less pronounced. No effusion identified. IMPRESSION: Mild improvement Electronically signed by Petey Blakely 08/08/2019 9:02 PM
[2019-08-09] MEDS: CLINIMIX E 4.25%-5% SOLUTION 1,000 ML IV SCH ×4 (01:14→20:04)
[2019-08-09] MEDS: DILAUDID IV PRN ×5 (01:25→22:15)
[2019-08-09] MEDS: LOVENOX SUBQ SCH ×2 (03:54→14:51)
[2019-08-09] MEDS: TORADOL IV PRN (03:57)
[2019-08-09 05:16] LABS: BASO# 0.02 X1000 (0.0-0.2); BASO% 0.3 % (0.0-0.8); EOS# 0.23 X1000 (0.0-0.7); EOS% 3.8 % (0.0-10.0); HEMATOCRIT 36.9 % (42.0-52.0); HEMOGLOBIN 12.4 g/dL (14.0-18.0); LYMPH% 29.6 % (20.5-51.1); MCH 30.9 PG (27-31); MCHC 33.6 g/dL (33-37); MONO# 0.58 X1000 (0.11-0.59); MONO% 9.5 % (1.7-9.3); MPV 9.9 FL (7.4-10.4); NEUT# 3.46 X1000 (1.4-6.5); NEUT% 56.8 % (42.2-75.2); PLT 283 X1000 (130-400); RBC 4.01 XMIL (4.7-6.1); RDW 11.9 % (11.5-14.5); WBC 6.09 X1000 (4.8-10.8)
[2019-08-09 05:45] LABS: AGAP 9; BUN 14 mg/dL (8-22); CALCIUM 8.6 mg/dL (8.8-10.2); CHLORIDE 101 mmol/L (98-107); COSMO 272; CREATININE 0.7 mg/dL (0.7-1.2); ESTIMATED GFR > 60; GLUCOSE 116 mg/dL (70-104); POTASSIUM 3.8 mmol/L (3.5-5.1); SODIUM 135 mmol/L (136-145); TCO2 25 mmol/L (25-35)
[2019-08-09] MEDS: KLONOPIN PO SCH ×2 (08:18→21:13)
[2019-08-09] MEDS: NICODERM PATCH TD SCH (08:18)
[2019-08-09] MEDS: PRILOSEC PO SCH ×2 (08:18→21:13)
[2019-08-09] MEDS: ZOFRAN IV PRN ×3 (08:19→18:38)
--- NOTE | 2019-08-09 15:16 | PROGRESS NOTE ---
DATE: 08/09/2019 OBJECTIVE: Vital Signs: Blood pressure is 112/78, heart rate of 78, respiratory rate of 12, temperature 98. No fevers. Cardiovascular: Regular rate and rhythm. Pulmonary: Bilateral breath sounds. Clear to auscultation. GI: Soft, nontender, nondistended. Bowel sounds are positive. There is no wheezing. There are no rales. I think I am going to start him on Eliquis in the morning and make sure that they qualify for pricing. ASSESSMENT: 1. Pulmonary infarct. He seems to still struggling a bit, but overall he is doing okay. We are going to switch him to Eliquis tomorrow with a b.i.d. loading dose. 2. Respiratory failure. I think we are probably going to have to look at home oxygen evaluation tomorrow, but today is the first day I feel like he actually looks a little bit better to me. He just seems like he is doing a little bit better. Switch him to some pain medication and see how he does with that. DISPOSITION: Pending clinical status and we will continue to follow. cc: Travis Workman MD
[2019-08-09] MEDS: NORCO-10 PO PRN (16:31)
--- NOTE | 2019-08-10 01:15 | PULMONOLOGY PROGRESS NOTE ---
DATE: 08/09/2019 SUBJECTIVE: The patient is awake, alert and conversant. He has some pleuritic chest pain but it is improving. OBJECTIVE: The patient has been afebrile for the last 24 hours. Blood pressure 126/86, heart rate 81, respiratory rate 16, oxygen saturation 96% on 2 L per nasal cannula.HEENT: Pupils are equal and reactive. Oropharynx appears clear. Chest reveals decreased breath sounds, right base. Cardiac exam: S1, S2. Abdomen is soft. Extremities are without edema. The right leg is slightly larger than the left. IMPRESSION: A 54-year-old with: 1. Unprovoked pulmonary embolus. 2. Pulmonary infarction. 3. Pleurisy associated with infarction. 4. Deep vein thrombosis. 5. Acute hypoxemic respiratory failure. DISCUSSION: A 54-year-old with problems outlined above. He has been anticoagulated for 96 hours. He continues to improve. RECOMMENDATIONS: 1. Agree with initiation of oral anticoagulation. 2. Continue incentive spirometry. 3. Consider ambulation tomorrow. 4. Consider discharge home if he continues to improve. cc: Sincere Arias MD
[2019-08-10] MEDS: CLINIMIX E 4.25%-5% SOLUTION 1,000 ML IV SCH (04:46)
[2019-08-10] MEDS: DILAUDID IV PRN ×5 (04:51→23:55)
[2019-08-10 05:22] LABS: BASO# 0.03 X1000 (0.0-0.2); BASO% 0.5 % (0.0-0.8); EOS# 0.33 X1000 (0.0-0.7); EOS% 5.6 % (0.0-10.0); HEMATOCRIT 40.1 % (42.0-52.0); HEMOGLOBIN 13.4 g/dL (14.0-18.0); LYMPH# 1.61 X1000 (1.2-3.4); LYMPH% 27.3 % (20.5-51.1); MCHC 33.4 g/dL (33-37); MCV 92.8 FL (81-99); MONO# 0.64 X1000 (0.11-0.59); MONO% 10.9 % (1.7-9.3); NEUT# 3.28 X1000 (1.4-6.5); NEUT% 55.7 % (42.2-75.2); PLT 313 X1000 (130-400); RBC 4.32 XMIL (4.7-6.1); RDW 12.1 % (11.5-14.5); WBC 5.89 X1000 (4.8-10.8)
[2019-08-10 05:43] LABS: AGAP 10; BUN 14 mg/dL (8-22); CALCIUM 8.5 mg/dL (8.8-10.2); CHLORIDE 99 mmol/L (98-107); COSMO 269; CREATININE 0.8 mg/dL (0.7-1.2); ESTIMATED GFR > 60; GLUCOSE 106 mg/dL (70-104); POTASSIUM 4.4 mmol/L (3.5-5.1); SODIUM 134 mmol/L (136-145); TCO2 25 mmol/L (25-35)
[2019-08-10] MEDS: KLONOPIN PO SCH ×2 (10:01→20:05)
[2019-08-10] MEDS: NICODERM PATCH TD SCH (10:02)
[2019-08-10] MEDS: PRILOSEC PO SCH ×2 (10:02→20:05)
[2019-08-10] MEDS: ELIQUIS PO SCH ×2 (10:14→20:05)
[2019-08-10] MEDS: NORCO-10 PO PRN (12:32)
[2019-08-10] MEDS ORDERED: DILAUDID IV ONE (13:28)
--- NOTE | 2019-08-10 15:01 | PROGRESS NOTE ---
DATE: 08/10/2019 SUBJECTIVE: The patient had more pain today, swelling in his lower extremities. OBJECTIVE: Blood pressure is 141/82, heart rate of 75, respiratory rate 18, temperature 98.2 degrees.Cardiovascular: Regular rate and rhythm. Pulmonary: Bilateral breath sounds clear to auscultation. GI: Soft, nontender, nondistended. Bowel sounds are positive. Extremities: He had increasing nonpitting edema in his right ankle. LABORATORY DATA: White count 5, hemoglobin and hematocrit 13 and 40, platelets 313,000. Basic was normal. PROBLEM LIST: 1. Deep venous thrombosis/pulmonary embolus. He seems to be doing okay. I think the right lower extremity pain may be related to peripheral edema and/or just kind of deconditioning. I think today was a most he has walked understandably because of pain and swelling and irritation in several days. He is on Eliquis and seems to be doing okay. 2. Pulmonary embolus, pulmonary infarct. Continue pain control and follow. 3. Respiratory insufficiency. I do not think he is going to end up needing oxygen. We will continue to monitor that and see how he does and we will go from there, but I agree with Dr. Arias if we can get him out tomorrow, I think that would be the best next step for him. We will continue to follow and have him follow up with Dr. Hernandez and/or Dr. Arias. cc: Travis Workman MD
[2019-08-10] MEDS: LASIX PO SCH (15:34)
[2019-08-10] MEDS: PERCOCET-5 PO PRN (18:13)
--- NOTE | 2019-08-10 20:27 | PULMONOLOGY PROGRESS NOTE ---
DATE: 08/10/2019 SUBJECTIVE: The patient is awake, alert and conversive. He denies chest pain with cough. He is doing well on his incentive spirometry. He denies shortness of breath. He does report significant pain in the right lower extremity associated with walking. The pain is anteriorly in the leg along the murphy and radiates up into the knee. IMPRESSION: A 54-year-old with: 1. Unprovoked pulmonary embolism. 2. Pulmonary infarction. 3. Pleurisy. 4. Acute hypoxemic respiratory failure which has resolved. 5. Deep venous thrombosis. 6. Right lower extremity pain. DISCUSSION: A 54-year-old with problems as outlined above. He has pain in the right leg which is not typical pain associated with a clot in the leg and is on the anterior surface of the right lower extremity. Etiology for this pain is not clear but appears to be more musculoskeletal than vascular or neuropathic. PLAN: 1. Continue oral anticoagulation. 2. Continue to ambulate 3. Complete hypercoagulable workup per oncology. 4. Anticipate discharge home soon. cc: Sincere Arias MD [facility]
[2019-08-11] MEDS: DILAUDID IV PRN ×2 (05:06→11:07)
[2019-08-11 06:08] LABS: AGAP 15; BUN 13 mg/dL (8-22); CALCIUM 9.3 mg/dL (8.8-10.2); CHLORIDE 102 mmol/L (98-107); COSMO 274; ESTIMATED GFR > 60; GLUCOSE 99 mg/dL (70-104); POTASSIUM 5.2 mmol/L (3.5-5.1); SODIUM 137 mmol/L (136-145); TCO2 20 mmol/L (25-35)
[2019-08-11] MEDS: PERCOCET-5 PO PRN ×2 (08:23→13:25)
[2019-08-11] MEDS: LASIX PO SCH (08:29)
[2019-08-11] MEDS: PRILOSEC PO SCH (08:46)
[2019-08-11] MEDS: KLONOPIN PO SCH (08:46)
[2019-08-11] MEDS: ELIQUIS PO SCH (08:47)
[2019-08-11] MEDS: NICODERM PATCH TD SCH (08:47)
[2019-08-11 11:59] VITALS: BP 103/77
--- NOTE | 2019-08-11 14:17 | Extremity Venous Study ---
PROCEDURE NAME: Venous U/S Right Leg - 08/10/2019 REQUESTING PHYSICIAN: Dr. Workman. HARVESTING SUPERVISOR: Kristine. INDICATIONS: 1. Pain and swelling. 2. History of deep venous thrombosis 5 days ago. PREVIOUS COMPARISON: From 08/05/2019. EQUIPMENT: [employer] E9 ultrasound system with a 9L-D transducer. FINDINGS: Images of the right lower extremity with comparison shot to the left common femoral vein were obtained in both sagittal and transverse planes. Doppler was used to evaluate veins for spontaneity, phasicity, respiratory excursion, and digital augmentation. RESULTS: Stable-appearing occlusive DVT noted in the right popliteal vein, posterior tibial vein and peroneal veins. When compared to previous study again, this is stable. No obvious superficial venous thrombosis noted. INTERPRETATION: Stable DVT noted on the right side in the popliteal, posterior tibial veins and peroneal veins. cc: MD Travis Viveros MD
--- NOTE | 2019-08-12 06:15 | DISCHARGE SUMMARY ---
ADMISSION DATE: 08/05/2019 DISCHARGE DATE: 08/11/2019 DISCHARGE DIAGNOSES: 1. Pulmonary embolism with pulmonary infarction. 2. Right lower extremity deep vein thrombosis. HOSPITAL COURSE: This is a 54-year-old gentleman who was admitted to the hospital with chest pain and leg pain. He is found to have pulmonary embolism with pulmonary infarct along with right lower extremity deep vein thrombosis. He was initially treated with enoxaparin, and then later on switched to apixaban. He continues to have some chest pain, although the pain has significantly improved. He also has right lower extremity pain that is slowly and gradually getting better. He has been in the bed for the past 6 days since hospital admission, and has some deconditioning because of which physical therapy is working with him. Since his overall condition has improved, he is going to be discharged home today. DISCHARGE MEDICATIONS: 1. Apixaban 10 mg orally twice daily for 6 days and then continue as 5 mg orally twice daily. 2. Percocet 7.5 mg every 4 hours as needed for pain. 3. Omeprazole 40 mg orally twice daily. 4. Clonazepam 1 mg orally twice daily. 5. Furosemide 20 mg orally once daily. 6. Ondansetron 4 mg p.o. q.6h p.r.n. for nausea. FOLLOW-UP: 1. He will follow up with Dr. Gila Hernandez in the next 2 to 4 weeks. 2. He is also advised to follow with Dr. Valle in the next 1 to 2 weeks. CONDITION: Stable. DISPOSITION: Home. cc: Chica Payton MD
[2019-08-17] MEDS ORDERED: ELIQUIS PO SCH (09:00)
== END 2019-08-11 16:09 | disposition home or self-care (01) | DRG 175 ==
LOC: P.ED 10:52 → P.MEDSURG 10:53 → SUATTDRO 10:53 → 1N 08-07 17:48
PROVIDERS: ATTEND Internal Medicine